=== PATIENT | male | born 1995 | race Caucasian/White ===

== ENCOUNTER 2017-01-03 09:02 | Emergency (ER) | payer OTHER ==
[~2017-01-03] VITALS: Ht 190.5 cm; Wt 92.3 kg
[2017-01-03 09:02] VITALS: BP 128/62
--- NOTE | 2017-01-03 09:39 | ED PDOC ---
Post-Departure Follow-Up pt states tolerating Amoxicillin in the past, has a slight reaction to pcn only , recently prescribed cleocin bid - ineffective Cyn Campos Jan 03, 2017 09:39
[2017-01-03] MEDS ORDERED: AMOX500C PO (09:48)
[2017-01-03] MEDS ORDERED: IBUP-1022 PO (09:49)
== END 2017-01-03 10:06 | disposition home or self-care (01) ==
LOC: M ED 09:02
DX: K04.6 Periapical abscess with sinus (principal); K05.00 Acute gingivitis, plaque induced; K08.89 Other specified disorders of teeth and supporting structures; Z88.0 Allergy status to penicillin

== ENCOUNTER 2018-01-01 05:36 | Emergency (ER) | payer MEDICAID, SELFPAY, OTHER ==
[2018-01-01] MEDS: NORCO, ANEXSIA 5/325MG TABLET (HYDROcodone/ACETAMINOPHEN) PO (07:08)
== END 2018-01-01 07:14 | disposition home or self-care (01) ==
LOC: M ED 05:36
DX: K08.89 Other specified disorders of teeth and supporting structures (principal); J02.9 Acute pharyngitis, unspecified; R68.84 Jaw pain; Z88.0 Allergy status to penicillin; F17.210 Nicotine dependence, cigarettes, uncomplicated
CPT/HCPCS: 99282

== ENCOUNTER 2020-04-15 18:52 | Emergency (ER) | payer MEDICAID ==
[~2020-04-15 18:52] MED LIST: AMOX500C PO; CLEO300C2 PO; HYDR-3715 PO; IBUP-1022 PO; MAGICMW SSP
[2020-04-15] MEDS ORDERED: SUCCINYLCHOLINE 100 MG/5 ML SYRINGE (J0330) ONE (18:53)
[2020-04-15] MEDS ORDERED: ETOMIDATE INJ 20MG/10ML VIAL ONE (18:53)
[2020-04-15] MEDS ORDERED: VECURONIUM BROMIDE 10MG VIAL ONE (18:53)
[2020-04-15] MEDS ORDERED: SUCCINYLCHOLINE INJ 200 MG/10 ML VIAL (J0330) IV STA (18:59)
[2020-04-15] MEDS ORDERED: ETOMIDATE INJ 20MG/10ML VIAL IV ONE (18:59)
[2020-04-15] MEDS ORDERED: propofoL 200 MG/20 ML VIAL As Ordered ONE (19:04)
[2020-04-15] MEDS ORDERED: PROPOFOL 1,000 MG/100 ML VIAL As Ordered ONE (19:05)
[2020-04-15] MEDS ORDERED: KETAMINE HCL 200 MG/20 ML VIAL As Ordered ONE (19:11)
[2020-04-15] MEDS ORDERED: propofoL 200 MG/20 ML VIAL IV ONE ×3 (19:16→19:22)
[2020-04-15] MEDS ORDERED: VECURONIUM BROMIDE 10MG VIAL IV STA (19:20)
[2020-04-15] MEDS ORDERED: propofoL 1,000 MG in IV 1 EA IV SCH (19:21)
[2020-04-15] MEDS ORDERED: KETAMINE HCL 200 MG/20 ML VIAL IV ONE (19:30)
[2020-04-15 19:32] LABS: ABG BASE EXCESS -2.7 (-2.0-2.0); ABG HCO3 24.6 MEQ/L (22.0-26.0); ABG O2 SATURATION 98.9 % (95.0-99.0); ABG PARTIAL PRESSURE CO2 52.8 mmHg (35.0-45.0); ABG PARTIAL PRESSURE O2 163.2 mmHg (75.0-100.0); ABG STANDARD HCO3 22.2 MEQ/L (22.0-26.0); ABG TOTAL CO2 26.2 MEQ/L (22.0-29.0); ABG pH (ARTERIAL) 7.286 UNITS (7.350-7.450)
[2020-04-15] MEDS ORDERED: ISOVUE-370 76% 100ML VIAL As Ordered ONE (19:33)
[2020-04-15] MEDS ORDERED: NS IV SCH (19:45)
[2020-04-15] MEDS ORDERED: KETAMINE HCL IV SCH (19:45)
[2020-04-15 19:49] LABS: BASO # 0.1 10^3/uL (0.0-0.2); BASO % 0.3 % (0.0-1.0); EOS # 0.1 10^3/uL (0.0-0.5); EOS % 0.6 % (0.0-3.0); HEMATOCRIT 39.5 % (42.0-52.0); HEMOGLOBIN 12.9 g/dl (13.5-17.5); LYMPH # 2.4 10^3/uL (1.5-5.0); MEAN CORPUSCULAR HEMOGLOBIN 28.9 pg (27.0-33.0); MEAN CORPUSCULAR HGB CONC 32.7 g/dl (32.0-36.5); MEAN CORPUSCULAR VOLUME 88.6 fl (80.0-96.0); MONO # 0.7 10^3/uL (0.0-0.8); MONO % 3.7 % (0.0-5.0); NEUTROPHILS # 15.1 10^3/uL (1.5-8.5); PLATELET COUNT, AUTOMATED 185 10^3/uL (150-450); RED BLOOD COUNT 4.46 10^6/uL (4.30-6.10); WHITE BLOOD COUNT 18.7 10^3/uL (4.0-10.0)
[2020-04-15 20:02] LABS: INR 1.14; PROTHROMBIN TIME 14.9 SECONDS (12.5-14.3)
[2020-04-15 20:03] LABS: PARTIAL THROMBOPLASTIN TIME 35.6 SECONDS (24.2-38.5)
[2020-04-15 20:14] LABS: AMPHETAMINES LEVEL URINE NEGATIVE (NEGATIVE); BARBITURATES URINE NEGATIVE (NEGATIVE); BENZODIAZEPINES URINE NEGATIVE (NEGATIVE); CANNABINOIDS URINE POSITIVE (NEGATIVE); COCAINE METABOLITE URINE NEGATIVE (NEGATIVE); METHADONE URINE NEGATIVE (NEGATIVE); OPIATES URINE NEGATIVE (NEGATIVE); PHENCYCLIDINE URINE NEGATIVE (NEGATIVE)
[2020-04-15 20:22] LABS: RSV AMPLIFICATION NEGATIVE (NEGATIVE)
[2020-04-15 20:29] VITALS: O2SAT 100
[2020-04-15 20:31] LABS: ALBUMIN 3.7 GM/DL (3.2-5.2); ALT/SGPT 37 U/L (12-78); AMYLASE 38 U/L (25-115); BILIRUBIN,DIRECT < 0.1 MG/DL (0.0-0.2); BILIRUBIN,TOTAL 0.6 MG/DL (0.2-1.0); BLOOD UREA NITROGEN 18 MG/DL (7-18); CALCIUM LEVEL 8.5 MG/DL (8.5-10.1); CARBON DIOXIDE LEVEL 27 MEQ/L (21-32); CHLORIDE LEVEL 106 MEQ/L (98-107); CK-MB VALUE MASS 10.2 NG/ML (<3.6); CPK CREATINE PHOSPHOKINASE 949 U/L (39-308); CREATININE FOR GFR 0.98 MG/DL (0.70-1.30); ETHYL ALCOHOL (ETHANOL) < 0.003 % (0.000-0.010); GLOMERULAR FILTRATION RATE > 60.0 (>60); GLUCOSE, FASTING 217 MG/DL (70-100); LIPASE 52 U/L (73-393); MB/CK RELATIVE INDEX 1.07 (< OR =4); POTASSIUM SERUM 2.7 MEQ/L (3.5-5.1); SODIUM LEVEL 140 MEQ/L (136-145); TOTAL PROTEIN 6.6 GM/DL (6.4-8.2)
[2020-04-15 21:20] VITALS: BP 107/51
--- NOTE | 2020-04-16 08:57 | ECGEPIP ---
[facility] - ED Test Date: 2020-04-15 Pat Name: ALAINA WEBER Department: Room: - Gender: Male Career Development Director: raghu : 1995 Requested By: Lisa Cortes Order Number: [id number] Reading MD: Lisa Cortes Measurements Intervals Wall Rate: 89 P: 73 GA: 143 QRS: 78 QRSD: 114 T: 71 QT: 373 QTc: 454 Interpretive Statements SINUS RHYTHM INCOMPLETE RIGHT BUNDLE BRANCH BLOCK MODERATE ST DEPRESSION No prior Electronically Signed on 04-16-2020 8:57:25 EST by Lisa Cortes
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
--- NOTE | 2020-04-17 07:14 | REP ---
INDICATION: trauma. COMPARISON: Portable chest at 7:07 p.m. earlier this same evening. TECHNIQUE: Supine AP view of the chest performed portably FINDINGS: There has been interval placement of a left subclavian central venous catheter with the tip in satisfactory location in the superior vena cava. The right thoracotomy tube is unchanged. There is subcutaneous emphysema along the right lateral chest wall, unchanged. There is an endotracheal tube with the tip just above the miguel angel at the level of the aortic arch. The lung diallo are clear. The cardiac size is normal. There is no pneumothorax or hemothorax. IMPRESSION: Interval placement of a left subclavian central venous catheter. The endotracheal tube and right thoracotomy tube are unchanged. Subcutaneous emphysema along the right lateral chest wall. Lung diallo are clear. <Electronically signed by Mariano Esteves > 04/17/20 [id number]
--- NOTE | 2020-04-17 07:17 | REP ---
INDICATION: trauma. COMPARISON: None. TECHNIQUE: There are 2 AP views of the pelvis performed portably FINDINGS: There is inferior dislocation of the left femoral head. No fracture is identified. The right hip is unremarkable. No pelvic fractures are identified otherwise. There are backboard artifacts. IMPRESSION: Inferior dislocation of the left femoral head. <Electronically signed by Mariano Esteves > 04/17/20 0711
--- NOTE | 2020-04-17 07:44 | REP ---
INDICATION: Trauma. COMPARISON: Supine portable chest performed earlier this evening. TECHNIQUE: CT of the chest with IV contrast. FINDINGS: Study is presented to me for the 1st time on 04/17/2020 at approximately 7:30 a.m.. There is a moderate right pneumothorax. This is not visible on this supine portable chest performed earlier the sebum. There is a right thoracotomy tube and subcutaneous emphysema along the right lateral chest wall, unchanged. There is an endotracheal tube with the tip above the miguel angel at the level of the aortic arch. There is a left IJ central venous catheter with the tip in the superior vena cava. There is no hemothorax. There is minor atelectasis in the right lower lobe adjacent to the thoracotomy tube there is minor atelectasis anteriorly in the right lung adjacent to the pneumothorax. The left lung is clear. No hemothorax is identified. There is no mediastinal hematoma. The thoracic aorta including the arch is unremarkable. Cardiac size is normal. There is no pericardial effusion. There are fractures of the left 5th and 6th ribs laterally. No clavicle, scapula, sternal or vertebral body fractures are identified. IMPRESSION: Right pneumothorax. Right thoracotomy tube. Right lung atelectasis as described. No hemothorax or mediastinal hematoma. Thoracic aorta is unremarkable. Left 5th and 6th rib fractures laterally. <Electronically signed by Mariano Esteves > 04/17/20 0748
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
--- NOTE | 2020-04-17 07:53 | RO ---
OPERATIVE NOTE DATE OF OPERATION: 04/15/2020 PREOPERATIVE DIAGNOSIS: Lack of vascular access. PREPROCEDURE DIAGNOSIS: Lack of vascular access. SURGEON: Michael Talamantes M.D. PROCEDURE: Insertion of left subclavian line. DESCRIPTION OF PROCEDURE: The patient's left subclavian fossa was prepped and draped in the usual sterile fashion, and the site infiltrated with 1% Lidocaine. The subclavian was found on the first pass and a wire was placed. The track was dilated and a triple lumen catheter was placed without difficulty. This was secured to the chest wall with two 3-0 silk sutures, aspirated, and flushed without difficulty. Chest showed the line to be in good place, and there was no pneumothorax.
--- NOTE | 2020-04-17 07:55 | REP ---
INDICATION: Trauma. COMPARISON: Chest CT this same date. TECHNIQUE: CT of the abdomen/pelvis with IV contrast performed contiguously with the chest CT. FINDINGS: The study is presented to me for the 1st time on 04/17/2020 at approximately 7:30 a.m.. There are 2 left rib fractures laterally. No left pneumothorax or hemothorax are identified. There is a right pneumothorax as also seen on the chest CT. There is a right thoracotomy tube is also seen on the chest CT. There is subcutaneous emphysema along the right lateral chest wall as seen on the chest CT. There are no lumbar, sacral or pelvic fractures. There is inferior dislocation of the left femoral head. No fracture is identified. The right hip is unremarkable. There is beam hardening artifact obscuring visualization is a consequence of patient scanned with the arms at sides. The hepatic parenchyma is grossly homogeneous. Splenic parenchyma is grossly homogeneous. The kidneys are unremarkable. The abdominal aorta is unremarkable. There is no hemoperitoneum. There is no pneumoperitoneum. There is a Swenson catheter in the bladder. The bowel and mesentery are unremarkable. The abdominal aorta is unremarkable. There is no periaortic or retroperitoneal hematoma. Pelvis: Pelvic bowel loops are unremarkable. Swenson catheter in the bladder. Inferior dislocation of the left femoral head as previously described. IMPRESSION: Inferior dislocation of the left femoral head. No hip or pelvic fracture. Two left rib fractures. Right pneumothorax, right thoracotomy tube. No hemothorax. No hemoperitoneum or pneumoperitoneum. No solid organ hematoma. <Electronically signed by Mariano Esteves > 04/17/20 0750
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
--- NOTE | 2020-04-17 11:24 | REP ---
INDICATION: Trauma. COMPARISON: None. TECHNIQUE: CT cervical spine performed in the axial plane, with sagittal and coronal reconstruction images performed. FINDINGS: There is comminuted fracture of the clivus. It is somewhat displaced. Mandibular fractures are described on the maxillofacial CT report. Displaced comminuted fracture is visualized involving the foramen magnum and right occipital condyle. Cervical vertebral bodies are normal in height and well aligned, with no fracture. Disc space heights are well maintained. Endotracheal tube is noted. Air is seen in the soft tissues of the right neck. Hemorrhage is seen surrounding the cervical spinal cord. IMPRESSION: No cervical spine fracture. There is a comminuted for displaced fracture of the clivus and a comminuted displaced fracture of the right foramen magnum in occipital condyle. A preliminary report was provided by [facility] at the time of the exam. <Electronically signed by Mariano Desai > 04/17/20 [id number]
--- NOTE | 2020-04-17 11:33 | REP ---
INDICATION: Trauma. COMPARISON: None. TECHNIQUE: CT BRAIN PERFORMED IN THE AXIAL PLANE. CORONAL RECONSTRUCTION IMAGES ARE PERFORMED. FINDINGS: Small amount of acute subdural hemorrhage is seen along the falx on the left posteriorly, maximally about 3 mm in thickness, extending along the bilateral tentorium. There is subarachnoid hemorrhage in the suprasellar cistern extending inferiorly anterior to the brainstem and surrounding the superior cervical spinal cord. Small amount of hemorrhage is also seen in the 3rd ventricle and in the posterior aspect of the lateral ventricles. Ventricles are normal in size. There is no midline shift there is no evidence of significant brain edema. There is a fracture of the right occipital bone at the foramen magnum. IMPRESSION: Small amount of acute subdural hemorrhage along the falx posteriorly extending along the bilateral tentorium. Subarachnoid hemorrhage is seen in the suprasellar cistern, anterior to the brainstem, surrounding superior cervical spinal cord, as well as in the 3rd and lateral ventricles. A preliminary report was provided by [facility] at the time of the exam and the referring provider was immediately notified by telephone of these findings. Critical Findings: Acute intracranial hemorrhage The critical information above was relayed directly by Dr. Arben Oneill by telephone to Dr. Smith on 04/15/2020 at 8:30 p.m. with readback verification. <Electronically signed by Mariano Desai > 04/17/20 1127
--- NOTE | 2020-04-17 11:56 | REP ---
INDICATION: TRAUMA. COMPARISON: None. TECHNIQUE: CT maxillofacial bones performed. Sagittal and coronal reconstruction images are performed. FINDINGS: There is an acute displaced comminuted fracture of the right mandibular condyle. The condyle itself is anteriorly dislocated. There is nondisplaced fracture involving the angle of the right mandible. There is displaced fracture of the left mandibular condyle. Left mandibular condyle is also anteriorly dislocated. There is a likely old right nasal bone fracture. There appears to be a subtle nondisplaced fracture of the right petrous apex extending to the right jugular canal at the level of the right internal auditory canal. May extend to the right mastoid temporal bone. There is displaced comminuted fracture involving the right occipital condyle and foramen magnum. Displaced fracture of the clivus is also noted. There is virtually complete opacification of the right maxillary sinus. There is minimal mucosal thickening/fluid in the left maxillary sinus and moderate diffuse partial opacification of the ethmoids extending into the bilateral frontoethmoidal recesses. There is partial opacification of right mastoid air cells. There is scattered air in the right neck and facial soft tissues. IMPRESSION: Mandibular condyle fractures with anterior displacement of both condyles. Nondisplaced fracture angle of right mandible. Comminuted displaced fracture of right occipital condyle and foramen magnum. Displaced fracture of the clivus. Suspect nondisplaced fracture involving the right petrous apex extending in to the right jugular foramen and possibly extending to the right mastoid temporal bone. Preliminary report was provided by [facility] at the time of the exam. <Electronically signed by Mariano Desai > 04/17/20 2402
== END 2020-04-15 21:41 | disposition short-term general hospital (02) ==
LOC: M ED 18:52
DX: S06.6X0A Traumatic subarachnoid hemorrhage without loss of consciousness, initial encounter (principal); S06.5X0A Traumatic subdural hemorrhage without loss of consciousness, initial encounter; S02.109A Fracture of base of skull, unspecified side, initial encounter for closed fracture; S73.005A Unspecified dislocation of left hip, initial encounter; S02.611A Fracture of condylar process of right mandible, initial encounter for closed fracture; S01.81XA Laceration without foreign body of other part of head, initial encounter; S02.113A Unspecified occipital condyle fracture, initial encounter for closed fracture; S02.80XA Fracture of other specified skull and facial bones, unspecified side, initial encounter for closed fracture; S22.42XA Multiple fractures of ribs, left side, initial encounter for closed fracture; V49.40XA Driver injured in collision with unspecified motor vehicles in traffic accident, initial encounter; J93.9 Pneumothorax, unspecified; J98.11 Atelectasis; R94.31 Abnormal electrocardiogram [ECG] [EKG]; Z97.8 Presence of other specified devices; Z88.0 Allergy status to penicillin
CPT/HCPCS: 32551; 32556; 70450; 70486; 71045; 71260; 72125; 72170; 73700; 74177; 80048; 80076; 80307; 81001; 82150; 82550; 82553; 82803; 83605; 83690; 85025; 85610; 85730; 86850; 86900; 86901; 87086; 87631; 93005; 93041; 94760; 96374; 96375; 96376; 99291; 99292; G0480; J0330; Q9967